=== PATIENT | female | born 1995 | race Two or more races ===

== ENCOUNTER 2024-04-04 21:26 | Inpatient (IN) | payer OTHER ==
[~2024-04-04] VITALS: Ht 165.1 cm; Wt 79.4 kg
--- NOTE | 2024-04-04 21:49 | NUR ---
SE RECIBE PACIENTE EN AMBULANCIA ALERTA Y ORIENTADA EN [facility] DEBIDO A TENER HEMOGLOBINA EN 7.5.
--- NOTE | 2024-04-04 22:04 | NUR ---
SE EJECUTAN ORDENES MEDICAS EN LE TOTALIDAD
[2024-04-04 22:16] LABS: HEMATOCRIT 23.8 % (36.0-45.00); MEAN CORPUSCULAR HGB CONC 28.9 g/dl (32.0-36.0); PLATELET COUNT 508 K/uL (150-450); RED BLOOD COUNT 3.93 M/uL (4.00-6.00); RED CELL DISTRIBUTION WIDTH 22.6 % (11.5-14.5)
[2024-04-04 22:18] LABS: HEMOGLOBIN 6.9 g/dL (12.0-15.00); MEAN CELL VOLUME 60.7 fL (80.00-100.00); MEAN CORPUSCULAR HEMOGLOBIN 17.5 pg (27.00-32.0)
[2024-04-04 22:37] LABS: ALBUMIN 3.5 gm/dL (3.4-5.0); ALKALINE PHOSPHATASE 82 U/L (50-136); ALT/SGPT 11 U/L (12-78); ANION GAP 4 (10.0-20.0); AST/SGOT 9 U/L (15-37); BLOOD UREA NITROGEN 10 mg/dL (7-18); BUN CREA RATIO 16 (7.0-25.0); CALCIUM 8.5 mg/dL (8.5-10.1); CARBON DIOXIDE 30 mEq/L (21-32); CHLORIDE 111 mmol/L (98-107); CREATININE SERUM 0.64 mg/dL (0.55-1.02); GFR 109.71; GLOBULINA 3.8 G/DL (2.4-3.5); GLUCOSE FASTING 90 mg/dL (65-100); HCG QUANTITATIVE < 1 mUI/mL (1-3); OSMOLALITY SERUM 280 MOSM/KG (275-295); POTASSIUM 3.97 mEq/L (3.5-5.1); SODIUM 141 mmol/L (136-145); TOTAL PROTEIN 7.3 gm/dL (6.4-8.2)
[2024-04-04] MEDS ORDERED: FAMOTIDINE/PF 20 MG in 0.9 % SODIUM CHLORIDE 100 ML IV SCH (23:14)
[2024-04-04] MEDS ORDERED: 0.9 % SODIUM CHLORIDE 1,000 ML IV SCH (23:15)
[2024-04-04 23:17] LABS: PH,URINE 7.5 (5.0-8.0); URINE APPEARANCE Clear; URINE BILIRRUBIN Negative (NEGATIVE); URINE BLOOD Negative; URINE COLOR Yellow; URINE GLUCOSE Negative (NEGATIVE); URINE KETONE Negative (NEGATIVE); URINE LEUKOCYTE Moderate; URINE NITRATE Negative; URINE PROTEIN Negative (NEGATIVE); URINE UROBILINOGEN 0.2 E.U./dl
[2024-04-04 23:21] LABS: URINE BACTERIA 3302.3 uL (0.0-1933); URINE EPITHELIAL CELLS 64.4 uL (0.0-38.8); URINE WBC 194.9 uL (0.0-23.2)
[2024-04-05 00:07] LABS: URINE RBC 0.6 uL (0.0-20.8)
[2024-04-05 08:56] VITALS: BP 145/90; O2SAT 100
[2024-04-05 09:46] LABS: RH POSITIVE
[2024-04-05] MEDS ORDERED: SOD FERRIC GLUC COMPLX/SUCROSE 125 MG in 0.9 % SODIUM CHLORIDE 100 ML IV SCH (10:11)
[2024-04-05] MEDS ORDERED: Cyanocobalamin/Mecobalamin 1 TAB.SL SL SCH (10:11)
[2024-04-05 10:49] LABS: FOLIC ACID 15.31 ng/ml (4.78-20)
[2024-04-05 17:24] VITALS: BP 144/89; O2SAT 99
[2024-04-05 21:53] VITALS: BP 146/90; O2SAT 100
[2024-04-06 00:26] VITALS: BP 140/87; O2SAT 97
[2024-04-06 02:48] LABS: HEMATOCRIT 28.3 % (36.0-45.00); HEMOGLOBIN 8.8 g/dL (12.0-15.00); MEAN CORPUSCULAR HEMOGLOBIN 20.2 pg (27.00-32.0); MEAN CORPUSCULAR HGB CONC 30.9 g/dl (32.0-36.0); PLATELET COUNT 451 K/uL (150-450); RED BLOOD COUNT 4.35 M/uL (4.00-6.00); RED CELL DISTRIBUTION WIDTH 26.4 % (11.5-14.5)
[2024-04-06 03:03] LABS: FERRITIN 10.7 NG/ML (8-252)
[2024-04-06] MEDS ORDERED: SODIUM CHLORIDE 0.45 % 1,000 ML IV SCH (09:30)
[2024-04-06 09:36] VITALS: BP 140/83
[2024-04-06 09:56] LABS: FOLIC ACID 11.09 ng/ml (4.78-20)
== END 2024-04-06 16:59 | disposition home or self-care (01) | DRG 812 ==
LOC: ER 21:26 → SEC-K 23:15 → MEDJ 04-05 19:57
PROVIDERS: General Practice; ADMIT Internal Medicine; ATTEND Internal Medicine
PROC: 30233N1 Transfusion of Nonautologous Red Blood Cells into Peripheral Vein, Percutaneous Approach (ICD-10-PCS; principal; 2024-04-05)
DX: D50.8 Other iron deficiency anemias (principal); D64.89 Other specified anemias